=== PATIENT | male | born 1990 | race Caucasian/White ===

== ENCOUNTER 2018-07-25 19:15 | Emergency (ER) | payer MEDICAID ==
[~2018-07-25] VITALS: Ht 167.6 cm; Wt 69.9 kg
[2018-07-25 19:51] VITALS: Ht 167.6 cm; Wt 69.9 kg
[2018-07-25 22:09] VITALS: BP 133/85
== END 2018-07-25 22:09 | disposition home or self-care (01) ==
LOC: ED 19:15
DX: S61.213A Laceration without foreign body of left middle finger without damage to nail, initial encounter (principal); W45.8XXA Other foreign body or object entering through skin, initial encounter; Y93.89 Activity, other specified; Y92.89 Other specified places as the place of occurrence of the external cause; Y99.8 Other external cause status
CPT/HCPCS: 90715; J2001

== ENCOUNTER 2018-07-30 09:18 | Emergency (ER) | payer MEDICAID ==
[~2018-07-30] VITALS: Ht 167.6 cm; Wt 68.9 kg
[2018-07-30 09:22] VITALS: BP 113/54; Ht 167.6 cm; Wt 68.9 kg
== END 2018-07-30 10:31 | disposition home or self-care (01) ==
LOC: ED 09:18
DX: S61.217D Laceration without foreign body of left little finger without damage to nail, subsequent encounter (principal)

== ENCOUNTER 2018-08-05 17:35 | Emergency (ER) | payer MEDICAID ==
[~2018-08-05] VITALS: Ht 167.6 cm; Wt 68.9 kg
[2018-08-05 17:42] VITALS: Ht 167.6 cm; Wt 68.9 kg
[2018-08-05 18:19] VITALS: BP 118/76
== END 2018-08-05 18:19 | disposition home or self-care (01) ==
LOC: ED 17:35
DX: S61.213D Laceration without foreign body of left middle finger without damage to nail, subsequent encounter (principal); X58.XXXD Exposure to other specified factors, subsequent encounter